=== PATIENT | female | born 1960 | race Caucasian/White ===

== ENCOUNTER 2016-12-05 14:36 | Emergency (ER) | payer MEDICARE, OTHER ==
[2016-12-05 15:33] LABS: BASOPHIL 0.3 % (0-2); EOSINOPHIL 4.2 % (0-5); HCT 43.5 % (37.0-47.0); HGB 14.2 g/dl (12.5-16.0); LYMPHOCYTE 29.3 % (15-48); MCH 30.2 pg (25.0-31.0); MCHC 32.6 g/dL (32.0-36.0); MCV 92.6 fL (78.0-100.0); MONOCYTE 3.2 % (0-12); MPV 9.7 fL (6.0-9.5); PLT 345 K/uL (150-400); RDW 14.2 % (11.5-14.0)
[2016-12-05 15:39] LABS: ALBUMIN 4.3 g/dL (3.5-5.0); BILIRUBIN - TOTAL 0.3 mg/dL (0.1-1.0); CREATININE 0.7 mg/dL (0.5-1.0); GLOBULIN (CALCULATION) 3.1 g/dL (2.2-4.2); TOTAL PROTEIN 7.4 g/dL (6.4-8.3)
== END 2016-12-05 20:01 | disposition home or self-care (01) ==
LOC: FER 14:36
PROVIDERS: Internal Medicine
DX: J20.9 Acute bronchitis, unspecified (principal); K21.9 Gastro-esophageal reflux disease without esophagitis; F32.9 Major depressive disorder, single episode, unspecified; F43.10 Post-traumatic stress disorder, unspecified; E03.9 Hypothyroidism, unspecified; Z88.5 Allergy status to narcotic agent; Z88.1 Allergy status to other antibiotic agents; Z88.6 Allergy status to analgesic agent; Z79.899 Other long term (current) drug therapy
CPT/HCPCS: 36415; 36600; 71020; 80053; 82803; 83605; 85025; 87040; 87804; 87899; 94640; J2930